=== PATIENT | male | born 1995 | race American Indian/Alaskan Native ===

== ENCOUNTER 2019-05-02 17:31 | Emergency (ER) | payer SELFPAY ==
--- NOTE | 2019-05-02 19:19 | Event Note ---
ED Screening Note Date of service: 05/02/19 Time: 19:17 ED Screening Note: Pt complains of N/V x 10 days streaks of blood in vomit denies marijuana seen here 04/28/18 for the same This initial assessment/diagnostic orders/clinical plan/treatment(s) is/are subject to change based on patients health status, clinical progression and re- assessment by fellow clinical providers in the ED. Further treatment and workup at subsequent clinical providers discretion. Patient/guardian urged not to elope from the ED as their condition may be serious if not clinically assessed and managed. Initial orders include: labs
[2019-05-02 20:03] LABS: Basophils # (Auto) 0.1 K/mm3 (0.0-0.1); Basophils % (Auto) 0.9 % (0.0-1.8); Eosinophils % (Auto) 0.2 % (0.0-4.3); Hematocrit 50.1 % (35.5-45.6); Hemoglobin 16.8 gm/dl (11.8-15.2); Lymphocytes # (Auto) 3.6 K/mm3 (1.2-5.4); Mean Corpuscular HGB Conc 34 % (32-34); Mean Corpuscular Volume 88 fl (84-94); Monocytes # (Auto) 0.8 K/mm3 (0.0-0.8); Monocytes % (Auto) 6.2 % (0.0-7.3); Platelet Count 438 K/mm3 (140-440); Red Blood Count 5.71 M/mm3 (3.65-5.03); Red Cell Distribution Width 12.1 % (13.2-15.2)
[2019-05-02 20:27] LABS: Alanine Aminotransferase 10 units/L (7-56); Albumin 4.5 g/dL (3.9-5); BUN/Creatinine Ratio 11; Blood Urea Nitrogen 16 mg/dL (9-20); Calcium 10.3 mg/dL (8.4-10.2); Hemolysis Index 20
[2019-05-02] MEDS ORDERED: ONDANSETRON 4 MG/2 ML INJ IV ONE (21:23)
[2019-05-02] MEDS ORDERED: FAMOTIDINE 20 MG/2 ML INJ IV ONE (21:23)
[2019-05-02] MEDS ORDERED: METOCLOPRAMIDE 10 MG/2 ML INJ IV ONE (21:38)
[2019-05-02] MEDS ORDERED: D5W/0.9% NACL 1,000 ML IV SCH ×2 (22:00→23:00)
--- NOTE | 2019-05-02 22:47 | Cat Scan Report ---
CT ABDOMEN AND PELVIS WITH IV CONTRAST INDICATION: Generalized abdominal pain TECHNIQUE: Following the administration of intravenous contrast, multiple axial CT images of the abdo men and pelvis were acquired. Sagittal and coronal reformats were obtained. All CT performed at this facility utilize dose reduction techniques including automated exposure control, iterative reconstru ction and weight based dosing when appropriate to reduce patient radiation dose to as low as reasonab ly achievable. COMPARISON: Abdominal radiograph, 04/28/2019 FINDINGS: Limited imaging of the bilateral lung bases demonstrates no evidence of acute abnormality. Abdomen: The liver, gallbladder, spleen, pancreas, bilateral adrenal glands and bilateral kidneys quynh w no evidence of acute abnormality. There is a small left renal cyst. There is no evidence of bowel o bstruction or free fluid. The appendix is not definitely identified, although there are no secondary signs of inflammation within the right lower quadrant. Pelvis: No free fluid is seen within the pelvis. The urinary bladder appears normal. Bones and Soft Tissues: Evaluation of bony structures demonstrates no evidence of acute bony abnormal ity. Evaluation of soft tissue structures demonstrates no acute soft tissue abnormality. IMPRESSION: 1. No evidence of acute inflammatory or obstructive process within the abdomen or pelvis. Signer Name: Myrtle Pan MD Signed: 05/02/2019 10:43 PM Workstation Name: [id number]
[2019-05-02 23:34] LABS: Bilirubin,Urine NEG (Negative); Blood,Urine NEG (Negative); Color,Urine Yellow (Yellow); Mucus,Urine 3+ /HPF
[2019-05-03] MEDS ORDERED: D5W/0.9% NACL 1,000 ML IV SCH (01:00)
--- NOTE | 2019-05-03 01:17 | Emergency Department Report ---
ED N/V/D HPI - General Chief complaint: Abdominal Pain Stated complaint: STOMACH PAIN Time Seen by Provider: 05/02/19 19:16 Source: patient Mode of arrival: Ambulatory Limitations: No Limitations - History of Present Illness Initial comments: Patient is a 23-year-old male who states he's had nausea vomiting is mild epigastric discomfort for the past 10 days. Patient originally had flulike symptoms which have mostly resolved. Patient was here approximately 5 days ago for nausea vomiting. At that time patient was given some Zofran and IV fluids were started. Patient was only given normal saline. Patient states anything he tries to eat or drink makes him nauseous and vomits. Patient states he has not been holding anything down in the last week. Patient states he has some crampy epigastric discomfort. He denies diarrhea fevers chills or syncopal episodes. - Related Data Previous Rx's Medication Instructions Recorded Last Taken Type Guaifenesin/Pseudoephedrne HCl 1 tab PO BID PRN #24 tab 04/26/19 Unknown Rx [Mucinex D ER 1,200-120 mg Tab] Ibuprofen [Motrin 800 MG tab] 800 mg PO Q8HR PRN #30 tablet 04/26/19 Unknown Rx ALBUTEROL Inhaler (OR & NICU) 2 puff IH QID PRN #8.5 gram 04/28/19 Unknown Rx [ProAir HFA Inhaler] Ondansetron [Zofran ODT TAB] 8 mg PO Q8HR #20 tab.rapdis 04/28/19 Unknown Rx Promethazine [Phenergan] 25 mg [place] Q6HR PRN #10 supp.rect 04/28/19 Unknown Rx Dicyclomine [Bentyl] 20 mg PO QID #10 tablet 05/03/19 Unknown Rx Famotidine [Pepcid] 40 mg PO QHS #10 tablet 05/03/19 Unknown Rx Metoclopramide [Reglan] 10 mg PO TID PRN #12 tab 05/03/19 Unknown Rx Allergies Allergy/AdvReac Type Severity Reaction Status Date / Time No Known Allergies Allergy Verified 05/02/19 21:33 ED Review of Systems ROS: Stated complaint: STOMACH PAIN Other details as noted in HPI Comment: All other systems reviewed and negative ED Past Medical Hx - Past Medical History Previous Medical History?: Yes Additional medical history: Abd pain - Surgical History Past Surgical History?: No - Social History Smoking Status: Never Smoker Substance Use Type: None - Medications Home Medications: Home Medications Medication Instructions Recorded Confirmed Last Taken Type Guaifenesin/Pseudoephedrne HCl 1 tab PO BID PRN #24 tab 04/26/19 Unknown Rx [Mucinex D ER 1,200-120 mg Tab] Ibuprofen [Motrin 800 MG tab] 800 mg PO Q8HR PRN #30 tablet 04/26/19 Unknown Rx ALBUTEROL Inhaler (OR & NICU) 2 puff IH QID PRN #8.5 gram 04/28/19 Unknown Rx [ProAir HFA Inhaler] Ondansetron [Zofran ODT TAB] 8 mg PO Q8HR #20 tab.rapdis 04/28/19 Unknown Rx Promethazine [Phenergan] 25 mg [place] Q6HR PRN #10 supp.rect 04/28/19 Unknown Rx Dicyclomine [Bentyl] 20 mg PO QID #10 tablet 05/03/19 Unknown Rx Famotidine [Pepcid] 40 mg PO QHS #10 tablet 05/03/19 Unknown Rx Metoclopramide [Reglan] 10 mg PO TID PRN #12 tab 05/03/19 Unknown Rx ED Physical Exam - General Limitations: No Limitations General appearance: alert, in no apparent distress - Head Head exam: Present: atraumatic, normocephalic - Eye Eye exam: Present: normal appearance, PERRL, EOMI - ENT ENT exam: Present: normal orophraynx, mucous membranes moist - Neck Neck exam: Present: normal inspection - Respiratory Respiratory exam: Present: normal lung sounds bilaterally. Absent: respiratory distress, wheezes, rales, rhonchi - Cardiovascular Cardiovascular Exam: Present: regular rate, normal rhythm, normal heart sounds. Absent: systolic murmur, diastolic murmur, rubs, gallop - GI/Abdominal GI/Abdominal exam: Present: soft, normal bowel sounds. Absent: distended, tenderness, guarding, rebound - Rectal Rectal exam: Present: deferred - Extremities Exam Extremities exam: Present: normal inspection - Back Exam Back exam: Present: normal inspection - Neurological Exam Neurological exam: Present: alert, oriented X3 - Psychiatric Psychiatric exam: Present: normal affect, normal mood - Skin Skin exam: Present: warm, dry, intact, normal color. Absent: rash ED Course Vital Signs 05/02/19 17:40 Temperature 98.3 F Pulse Rate 74 Respiratory 20 Rate Blood Pressure 133/99 O2 Sat by Pulse 99 Oximetry ED Medical Decision Making - Lab Data Result diagrams: 05/02/19 19:45 05/02/19 19:45 Lab Results 05/02/19 05/02/19 05/02/19 Range/Units 19:45 19:45 23:03 WBC 13.5 H (4.5-11.0) K/mm3 RBC 5.71 H (3.65-5.03) M/mm3 Hgb 16.8 H (11.8-15.2) gm/dl Hct 50.1 H (35.5-45.6) % MCV 88 (84-94) fl MCH 30 (28-32) pg MCHC 34 (32-34) % RDW 12.1 L (13.2-15.2) % Plt Count 438 (140-440) K/mm3 Lymph % (Auto) 27.0 (13.4-35.0) % [place] % (Auto) 6.2 (0.0-7.3) % Eos % (Auto) 0.2 (0.0-4.3) % Baso % (Auto) 0.9 (0.0-1.8) % Lymph # 3.6 (1.2-5.4) K/mm3 [place] # 0.8 (0.0-0.8) K/mm3 Eos # 0.0 (0.0-0.4) K/mm3 Baso # 0.1 (0.0-0.1) K/mm3 Seg Neutrophils % 65.7 (40.0-70.0) % Seg Neutrophils # 8.9 H (1.8-7.7) K/mm3 Sodium 137 (137-145) mmol/L Potassium 4.3 (3.6-5.0) mmol/L Chloride 98.0 (98-107) mmol/L Carbon Dioxide 24 (22-30) mmol/L Anion Gap 19 mmol/L BUN 16 (9-20) mg/dL Creatinine 1.4 (0.8-1.5) mg/dL Estimated GFR > 60 ml/min BUN/Creatinine Ratio 11 % Glucose 92 (75-100) mg/dL Calcium 10.3 H (8.4-10.2) mg/dL Total Bilirubin 0.80 (0.1-1.2) mg/dL AST 13 (5-40) units/L ALT 10 (7-56) units/L Alkaline Phosphatase 52 (35-129) units/L Total Protein 8.4 H (6.3-8.2) g/dL Albumin 4.5 (3.9-5) g/dL Albumin/Globulin Ratio 1.2 % Lipase 23 (13-60) units/L Urine Color Yellow (Yellow) Urine Turbidity Clear (Clear) Urine pH 6.0 (5.0-7.0) Ur Specific [place] 1.053 H (1.003-1.030) Urine Protein 30 mg/dl (Negative) mg/dL Urine Glucose (UA) Neg (Negative) mg/dL Urine Ketones 80 (Negative) mg/dL Urine Blood Neg (Negative) Urine Nitrite Neg (Negative) Urine Bilirubin Neg (Negative) Urine Urobilinogen 2.0 (<2.0) mg/dL Ur Leukocyte Esterase Neg (Negative) Urine WBC (Auto) 1.0 (0.0-6.0) /HPF Urine RBC (Auto) 1.0 (0.0-6.0) /HPF U Epithel Cells (Auto) 1.0 (0-13.0) /HPF Urine Mucus 3+ /HPF - Radiology Data CT of the abdomen and pelvis with IV contrast was performed. Shows no evidence of acute inflammatory obstructive process - Medical Decision Making She was given D5 normal saline for hydration. The patient had a large amount of ketones in her urine his last visit. After 2 L of D5 normal the patient states he was starting to feel some improvement. Patient was able to drink juice. Patient given additional third bag to help kill clear ketones. Patient be discharged home. Critical care attestation.: If time is entered above; I have spent that time in minutes in the direct care of this critically ill patient, excluding procedure time. ED Disposition Clinical Impression: Gastritis, Ketonuria, Dehydration Disposition: DC-01 TO HOME OR SELFCARE Is pt being admited?: No Does the pt Need Aspirin: No Condition: Stable Instructions: Gastritis (ED), Dehydration (ED) Referrals: PRIMARY CARE, [Primary Care Provider] - 3-5 Days Time of Disposition: 01:18
[2019-05-03 02:35] VITALS: BP 145/96
== END 2019-05-03 02:02 | disposition home or self-care (01) ==
LOC: ED 17:31
DX: K29.70 Gastritis, unspecified, without bleeding (principal); R82.4 Acetonuria; E86.0 Dehydration; Z79.899 Other long term (current) drug therapy
CPT/HCPCS: 36415; 74177; 80053; 81001; 83690; 85025; 96361; 96374; 96375; 99284; J2405; J2765; J7042; Q9967

== ENCOUNTER 2019-09-18 09:16 | Emergency (ER) | payer SELFPAY ==
[2019-09-18 09:28] VITALS: BP 149/106
[2019-09-18] MEDS ORDERED: KETOROLAC 30 MG/1 ML INJ IV ONE (10:08)
[2019-09-18] MEDS ORDERED: SODIUM CHLORIDE 0.9% 1000 ML 1,000 ML IV ONE (10:08)
[2019-09-18] MEDS ORDERED: ONDANSETRON 4 MG/2 ML INJ IV ONE (10:08)
[2019-09-18] MEDS ORDERED: FAMOTIDINE 20 MG/2 ML INJ IV ONE (10:08)
--- NOTE | 2019-09-18 11:35 | Emergency Department Report ---
Vomiting/Diarrhea - HPI Chief Complaint: Nausea/Vomiting/Diarrhea Stated Complaint: N/V Time Seen by Provider: 09/18/19 09:46 Duration: 3 Days Severity: moderate Nausea/Vomiting Severity: Mild Diarrhea Severity: None Pain Location: Epigastric Pain Severity: Mild Symptoms: No Watery Diarrhea, No Bloody diarrhea, No Fever, No Able to Tolerate Fluids, No Recent Unusual Foods, No Recent Untreated Water, No Recent use of Antibiotics, No Family w/ Similar Symptoms, No Contacts w/ Similar Symptoms, No Rash, No Hematuria, No Recent URI Symptoms Other History: This is a 23-year-old male with no prior medical history who presents the ED today complaining of nausea and vomiting x3 days. Patient states that he woke up 3 days ago and started experiencing vomiting. Patient states that he has not been able to hold down his food or fluid. Patient denies fever/chills/diarrhea/shortness of breath/chest pain/urinary symptoms ED Review of Systems ROS: Stated complaint: N/V Other details as noted in HPI Comment: All other systems reviewed and negative ED Past Medical Hx - Past Medical History Previous Medical History?: Yes Additional medical history: Abd pain - Surgical History Past Surgical History?: No - Social History Smoking Status: Current Every Day Smoker Substance Use Type: Alcohol, Marijuana - Medications Home Medications: Home Medications Medication Instructions Recorded Confirmed Last Taken Type Guaifenesin/Pseudoephedrne HCl 1 tab PO BID PRN #24 tab 04/26/19 Unknown Rx [Mucinex D ER 1,200-120 mg Tab] Ibuprofen [Motrin 800 MG tab] 800 mg PO Q8HR PRN #30 tablet 04/26/19 Unknown Rx Albuterol INH(or & Nicu Only) 2 puff IH QID PRN #8.5 gram 04/28/19 Unknown Rx [ProAir HFA Inhaler] Ondansetron [Zofran ODT TAB] 8 mg PO Q8HR #20 tab.rapdis 04/28/19 Unknown Rx Promethazine [Phenergan] 25 mg [place] Q6HR PRN #10 supp.rect 04/28/19 Unknown Rx Dicyclomine [Bentyl] 20 mg PO QID #10 tablet 09/18/19 Unknown Rx Famotidine [Pepcid] 40 mg PO QHS #10 tablet 09/18/19 Unknown Rx Metoclopramide [Reglan TAB] 10 mg PO TID PRN #12 tab 09/18/19 Unknown Rx Vomiting Diarrhea Exam - Exam General: Vital signs noted. No distress. Alert and acting appropriately. HEENT: Yes Moist Mucous Membranes, No Pharyngeal Erythema, No Pharyngeal Exudates, No Rhinorrhea, No Conjuctival Injection, No Frontal Tenderness, No Maxillary Tenderness Neck: No Adenopathy, No Rigidity Lungs: Yes Clear Lung Sounds, Yes Good Air Exchange, No Wheezes, No Stridor, No Cough, No Nasal Flaring, No Retractions, No Use of Accessory Muscles Heart exam: Regular: Yes, Murmur: No, Tachycardia: No Abdomen: Tenderness: No, Peritoneal Signs: No, Distention: No, Hyperactive Bowel sounds: No Skin exam: Rash: No, Edema: No, Normal turgor: Yes Neurologic: Alert and oriented, no deficits. Musculoskeletal: Unremarkable. ED Course Vital Signs 09/18/19 09/18/19 09/18/19 09:26 10:46 10:55 Temperature 98.1 F Pulse Rate 70 Respiratory 20 18 18 Rate Blood Pressure 149/106 O2 Sat by Pulse 100 99 Oximetry ED Medical Decision Making - Lab Data Result diagrams: 09/18/19 10:50 09/18/19 10:50 Laboratory Last Values WBC 10.9 K/mm3 (4.5-11.0) 09/18/19 10:50 RBC 5.37 M/mm3 (3.65-5.03) H 09/18/19 10:50 Hgb 16.1 gm/dl (11.8-15.2) H 09/18/19 10:50 Hct 46.6 % (35.5-45.6) H 09/18/19 10:50 MCV 87 fl (84-94) 09/18/19 10:50 MCH 30 pg (28-32) 09/18/19 10:50 MCHC 35 % (32-34) H 09/18/19 10:50 RDW 12.4 % (13.2-15.2) L 09/18/19 10:50 Plt Count 270 K/mm3 (140-440) 09/18/19 10:50 Lymph % (Auto) 20.3 % (13.4-35.0) 09/18/19 10:50 [place] % (Auto) 4.2 % (0.0-7.3) 09/18/19 10:50 Eos % (Auto) 0.0 % (0.0-4.3) 09/18/19 10:50 Baso % (Auto) 0.5 % (0.0-1.8) 09/18/19 10:50 Lymph # 2.2 K/mm3 (1.2-5.4) 09/18/19 10:50 [place] # 0.5 K/mm3 (0.0-0.8) 09/18/19 10:50 Eos # 0.0 K/mm3 (0.0-0.4) 09/18/19 10:50 Baso # 0.1 K/mm3 (0.0-0.1) 09/18/19 10:50 Seg Neutrophils % 75.0 % (40.0-70.0) H 09/18/19 10:50 Seg Neutrophils # 8.2 K/mm3 (1.8-7.7) H 09/18/19 10:50 Sodium 139 mmol/L (137-145) 09/18/19 10:50 Potassium 4.0 mmol/L (3.6-5.0) 09/18/19 10:50 Chloride 100.4 mmol/L (98-107) 09/18/19 10:50 Carbon Dioxide 22 mmol/L (22-30) 09/18/19 10:50 Anion Gap 21 mmol/L 09/18/19 10:50 BUN 17 mg/dL (9-20) 09/18/19 10:50 Creatinine 1.0 mg/dL (0.8-1.5) 09/18/19 10:50 Estimated GFR > 60 ml/min 09/18/19 10:50 BUN/Creatinine Ratio 17 % 09/18/19 10:50 Glucose 105 mg/dL (75-100) H 09/18/19 10:50 Calcium 10.1 mg/dL (8.4-10.2) 09/18/19 10:50 Total Bilirubin 0.50 mg/dL (0.1-1.2) 09/18/19 10:50 AST 15 units/L (5-40) 09/18/19 10:50 ALT 14 units/L (7-56) 09/18/19 10:50 Alkaline Phosphatase 63 units/L (35-129) 09/18/19 10:50 Total Protein 7.2 g/dL (6.3-8.2) 09/18/19 10:50 Albumin 4.9 g/dL (3.9-5) 09/18/19 10:50 Albumin/Globulin Ratio 2.1 % 09/18/19 10:50 Lipase 19 units/L (13-60) 09/18/19 10:50 - Medical Decision Making This 23-year-old female presents with nausea and vomiting most likely secondary to gastroenteritis. Labs were ordered. All labs are within normal limits, normalized Patient replenished with liter of fluids and some medicines in the ED. Patient had no episodes of vomiting in the ED. Discussed all lab findings with the patient. Discussed with patient brat diet for the next couple of days. Vital signs are normal patient is in no acute distress. Discussed follow-up with primary care physician In 3 to 5 days Critical care attestation.: If time is entered above; I have spent that time in minutes in the direct care of this critically ill patient, excluding procedure time. ED Disposition Clinical Impression: Nausea & vomiting, Gastroenteritis Disposition: - TO HOME OR SELFCARE Is pt being admited?: No Does the pt Need Aspirin: No Condition: Stable Instructions: Gastroenteritis (ED), Acute Nausea and Vomiting (ED) Additional Instructions: Make sure to follow up with the primary care physician as discussed. Take all your medications as you've been prescribed. If you have any worsening symptoms or develop new symptoms please return to ED immediately. Prescriptions: Famotidine [Pepcid] 40 mg PO QHS #10 tablet Dicyclomine [Bentyl] 20 mg PO QID #10 tablet Metoclopramide [Reglan TAB] 10 mg PO TID PRN #12 tab PRN Reason: Nausea Referrals: PRIMARY CARE,MD [Primary Care Provider] - 3-5 Days [facility] [Outside] - 3-5 Days [facility] [Provider Group] - 3-5 Days [facility] [Provider Group] - 3-5 Days Forms: Work/School Release Form(ED) Time of Disposition: 12:26
[2019-09-18 11:51] LABS: Basophils # (Auto) 0.1 K/mm3 (0.0-0.1); Basophils % (Auto) 0.5 % (0.0-1.8); Hematocrit 46.6 % (35.5-45.6); Hemoglobin 16.1 gm/dl (11.8-15.2); Lymphocytes # (Auto) 2.2 K/mm3 (1.2-5.4); Lymphocytes % (Auto) 20.3 % (13.4-35.0); Mean Corpuscular HGB Conc 35 % (32-34); Mean Corpuscular Volume 87 fl (84-94); Monocytes # (Auto) 0.5 K/mm3 (0.0-0.8); Monocytes % (Auto) 4.2 % (0.0-7.3); Platelet Count 270 K/mm3 (140-440); Red Blood Count 5.37 M/mm3 (3.65-5.03); Red Cell Distribution Width 12.4 % (13.2-15.2)
[2019-09-18 12:01] LABS: Alanine Aminotransferase 14 units/L (7-56); Albumin 4.9 g/dL (3.9-5); BUN/Creatinine Ratio 17; Blood Urea Nitrogen 17 mg/dL (9-20); Calcium 10.1 mg/dL (8.4-10.2); Hemolysis Index 17
== END 2019-09-18 13:01 | disposition home or self-care (01) ==
LOC: ED 09:16
DX: K52.9 Noninfective gastroenteritis and colitis, unspecified (principal); R11.2 Nausea with vomiting, unspecified; F17.200 Nicotine dependence, unspecified, uncomplicated; F12.90 Cannabis use, unspecified, uncomplicated; Z79.899 Other long term (current) drug therapy
CPT/HCPCS: 36415; 80053; 83690; 85025; 96361; 96374; 96375; 99283; J1885; J2405; J7030

== ENCOUNTER 2019-09-20 08:23 | Emergency (ER) | payer SELFPAY ==
[2019-09-20] MEDS ORDERED: FAMOTIDINE 20 MG/2 ML INJ IV ONE (10:17)
[2019-09-20] MEDS ORDERED: ONDANSETRON 4 MG/2 ML INJ IV ONE (10:17)
[2019-09-20 10:43] LABS: Basophils # (Auto) 0.1 K/mm3 (0.0-0.1); Basophils % (Auto) 0.7 % (0.0-1.8); Eosinophils % (Auto) 0.2 % (0.0-4.3); Hemoglobin 15.7 gm/dl (11.8-15.2); Lymphocytes # (Auto) 2.3 K/mm3 (1.2-5.4); Lymphocytes % (Auto) 27.6 % (13.4-35.0); Mean Corpuscular HGB Conc 34 % (32-34); Mean Corpuscular Volume 87 fl (84-94); Monocytes # (Auto) 0.5 K/mm3 (0.0-0.8); Monocytes % (Auto) 5.9 % (0.0-7.3); Platelet Count 270 K/mm3 (140-440); Red Blood Count 5.29 M/mm3 (3.65-5.03)
[2019-09-20] MEDS ORDERED: D5W/0.9% NACL 1,000 ML IV SCH ×2 (11:00)
[2019-09-20 11:03] LABS: Alanine Aminotransferase 13 units/L (7-56); Albumin 4.5 g/dL (3.9-5); BUN/Creatinine Ratio 15; Blood Urea Nitrogen 17 mg/dL (9-20); Calcium 9.7 mg/dL (8.4-10.2); Hemolysis Index 8
--- NOTE | 2019-09-20 11:31 | Emergency Department Report ---
ED N/V/D HPI - General Chief complaint: Nausea/Vomiting/Diarrhea Stated complaint: VOMITTING Time Seen by Provider: 09/20/19 09:48 Source: patient Mode of arrival: Ambulatory Limitations: No Limitations - History of Present Illness Initial comments: Patient is a 23-year-old F [place] male who is presenting with nausea vomiting. Patient was here 2 days ago for the same complaint. He was hydrated and given antiemetics. Patient states he is continued to have nausea vomiting is unable to keep anything down. Has had some mild epigastric discomfort as well. States the pain is 5 out of 10 in severity and is crampy burning in nature. Patient had similar episode several months ago but did not follow-up with gastroenterology. He denies any cough cold congestion fevers or chills at this time. - Related Data Previous Rx's Medication Instructions Recorded Last Taken Type Guaifenesin/Pseudoephedrne HCl 1 tab PO BID PRN #24 tab 04/26/19 Unknown Rx [Mucinex D ER 1,200-120 mg Tab] Ibuprofen [Motrin 800 MG tab] 800 mg PO Q8HR PRN #30 tablet 04/26/19 Unknown Rx Albuterol INH(or & Nicu Only) 2 puff IH QID PRN #8.5 gram 04/28/19 Unknown Rx [ProAir HFA Inhaler] Ondansetron [Zofran ODT TAB] 8 mg PO Q8HR #20 tab.rapdis 04/28/19 Unknown Rx Promethazine [Phenergan] 25 mg [place] Q6HR PRN #10 supp.rect 04/28/19 Unknown Rx Dicyclomine [Bentyl] 20 mg PO QID #10 tablet 09/18/19 Unknown Rx Famotidine [Pepcid] 40 mg PO QHS #10 tablet 09/18/19 Unknown Rx Metoclopramide [Reglan TAB] 10 mg PO TID PRN #12 tab 09/18/19 Unknown Rx Allergies Allergy/AdvReac Type Severity Reaction Status Date / Time No Known Allergies Allergy Verified 05/02/19 21:33 ED Review of Systems ROS: Stated complaint: VOMITTING Other details as noted in HPI Comment: All other systems reviewed and negative ED Past Medical Hx - Past Medical History Previous Medical History?: No Additional medical history: Abd pain - Surgical History Past Surgical History?: No - Social History Smoking Status: Never Smoker Substance Use Type: None - Medications Home Medications: Home Medications Medication Instructions Recorded Confirmed Last Taken Type Guaifenesin/Pseudoephedrne HCl 1 tab PO BID PRN #24 tab 04/26/19 Unknown Rx [Mucinex D ER 1,200-120 mg Tab] Ibuprofen [Motrin 800 MG tab] 800 mg PO Q8HR PRN #30 tablet 04/26/19 Unknown Rx Albuterol INH(or & Nicu Only) 2 puff IH QID PRN #8.5 gram 04/28/19 Unknown Rx [ProAir HFA Inhaler] Ondansetron [Zofran ODT TAB] 8 mg PO Q8HR #20 tab.rapdis 04/28/19 Unknown Rx Promethazine [Phenergan] 25 mg [place] Q6HR PRN #10 supp.rect 04/28/19 Unknown Rx Dicyclomine [Bentyl] 20 mg PO QID #10 tablet 09/18/19 Unknown Rx Famotidine [Pepcid] 40 mg PO QHS #10 tablet 09/18/19 Unknown Rx Metoclopramide [Reglan TAB] 10 mg PO TID PRN #12 tab 09/18/19 Unknown Rx ED Physical Exam - General Limitations: No Limitations General appearance: alert, in no apparent distress - Head Head exam: Present: atraumatic, normocephalic - Eye Eye exam: Present: normal appearance, PERRL, EOMI - ENT ENT exam: Present: mucous membranes moist - Neck Neck exam: Present: normal inspection - Respiratory Respiratory exam: Present: normal lung sounds bilaterally. Absent: respiratory distress, wheezes, rales, rhonchi - Cardiovascular Cardiovascular Exam: Present: regular rate, normal rhythm, normal heart sounds. Absent: systolic murmur, diastolic murmur, rubs, gallop - GI/Abdominal GI/Abdominal exam: Present: soft, tenderness (epigastric), normal bowel sounds. Absent: distended, guarding, rebound, rigid - Rectal Rectal exam: Present: deferred - Extremities Exam Extremities exam: Present: normal inspection - Back Exam Back exam: Present: normal inspection - Neurological Exam Neurological exam: Present: alert, oriented X3 - Psychiatric Psychiatric exam: Present: normal affect, normal mood - Skin Skin exam: Present: warm, dry, intact, normal color. Absent: rash ED Course Vital Signs 09/20/19 08:30 Temperature 98.6 F Pulse Rate 65 Respiratory 20 Rate Blood Pressure 141/101 O2 Sat by Pulse 99 Oximetry ED Medical Decision Making - Lab Data Result diagrams: 09/20/19 10:28 09/20/19 10:28 Lab Results 09/20/19 09/20/19 Range/Units 10:28 10:28 WBC 8.5 (4.5-11.0) K/mm3 RBC 5.29 H (3.65-5.03) M/mm3 Hgb 15.7 H (11.8-15.2) gm/dl Hct 46.0 H (35.5-45.6) % MCV 87 (84-94) fl MCH 30 (28-32) pg MCHC 34 (32-34) % RDW 12.0 L (13.2-15.2) % Plt Count 270 (140-440) K/mm3 Lymph % (Auto) 27.6 (13.4-35.0) % [place] % (Auto) 5.9 (0.0-7.3) % Eos % (Auto) 0.2 (0.0-4.3) % Baso % (Auto) 0.7 (0.0-1.8) % Lymph # 2.3 (1.2-5.4) K/mm3 [place] # 0.5 (0.0-0.8) K/mm3 Eos # 0.0 (0.0-0.4) K/mm3 Baso # 0.1 (0.0-0.1) K/mm3 Seg Neutrophils % 65.6 (40.0-70.0) % Seg Neutrophils # 5.6 (1.8-7.7) K/mm3 Sodium 140 (137-145) mmol/L Potassium 4.1 (3.6-5.0) mmol/L Chloride 98.4 (98-107) mmol/L Carbon Dioxide 28 (22-30) mmol/L Anion Gap 18 mmol/L BUN 17 (9-20) mg/dL Creatinine 1.1 (0.8-1.5) mg/dL Estimated GFR > 60 ml/min BUN/Creatinine Ratio 15 % Glucose 96 (75-100) mg/dL Calcium 9.7 (8.4-10.2) mg/dL Total Bilirubin 0.60 (0.1-1.2) mg/dL AST 13 (5-40) units/L ALT 13 (7-56) units/L Alkaline Phosphatase 58 (35-129) units/L Total Protein 6.9 (6.3-8.2) g/dL Albumin 4.5 (3.9-5) g/dL Albumin/Globulin Ratio 1.9 % Lipase 36 (13-60) units/L - Medical Decision Making Patient had laboratory studies done to compare with his previous visit. Since patient has not been able to keep anything down but there was some concern with dehydration and renal insufficiency. Laboratory studies show that his renal function has not declined. He has been ruled out for pancreatitis hepatitis at this time and his bilirubin is within normal limits making biliary colic less likely. Patient's past medical history was reviewed and patient 5 months ago did have a CT of the abdomen pelvis which was unremarkable. Patient was hydrated with D5 normal saline and given antiemetics and he is feeling some better. Patient admits that he did not get his prescription for Zofran filled and has been urged to get his prescription filled as well as follow-up with gastroneurology. Patient will be discharged home. Critical care attestation.: If time is entered above; I have spent that time in minutes in the direct care o f this critically ill patient, excluding procedure time. ED Disposition Clinical Impression: Acute gastritis Qualifiers: Gastritis type: unspecified gastritis Gastritis bleeding: presence of bleeding unspecified Qualified Code(s): K29.00 - Acute gastritis without bleeding Disposition: DC-01 TO HOME OR SELFCARE Is pt being admited?: No Does the pt Need Aspirin: No Condition: Stable Referrals: [facility] [Provider Group] - 3-5 Days Time of Disposition: 11:34
[2019-09-20 12:39] VITALS: BP 152/97
== END 2019-09-20 12:38 | disposition home or self-care (01) ==
LOC: ED 08:23
DX: K29.00 Acute gastritis without bleeding (principal); R11.2 Nausea with vomiting, unspecified; Z79.899 Other long term (current) drug therapy
CPT/HCPCS: 36415; 80053; 83690; 85025; 96361; 96374; 96375; 99283; J2405; J7042